=== PATIENT | female | born 1980 | race Caucasian/White ===

== ENCOUNTER 2018-12-09 07:38 | Inpatient (IN) | payer OTHER, MEDICAID ==
[~2018-12-09 07:38] MED LIST: OXYTOCIN 30 UNITS/LR 500 ML BAG IV; PHENYLephrine (100 MCG/ML) 5ML SYG
[2018-12-09] MEDS ORDERED: LACTATED RINGER'S 500 ML IV (07:52)
[2018-12-09] MEDS ORDERED: METHYLERGONOVINE 0.2 MG INJ IM (08:00)
[2018-12-09] MEDS ORDERED: CARBOPROST 250 MCG INJ IM (08:00)
[2018-12-09] MEDS ORDERED: MISOPROSTOL 200 MCG TAB PR ×2 (08:00→11:30)
[2018-12-09] MEDS: LACTATED RINGER'S 1,000 ML IV ×4 (08:24→22:25)
[2018-12-09 08:25] LABS: ADD MAN DIFF? NO
[2018-12-09 08:28] LABS: WHITE BLOOD COUNT 9.1 10^3/ul (4.8-10.8)
[2018-12-09 08:28] LABS: BASOPHILS % 0.2 % (0.0-2.0); EOSINOPHILS # 0.1 10^3/ul (0.0-0.5); EOSINOPHILS % 0.8 % (0.0-7.0); HEMATOCRIT 36.7 % (37.0-47.0); HEMOGLOBIN 12.6 g/dl (12.0-16.0); LYMPHOCYTES # 2.2 10^3/ul (0.8-2.9); LYMPHOCYTES % 23.7 % (15.0-51.0); MEAN CORPUSCULAR HEMOGLOBIN 29.8 pg (29.0-33.0); MEAN CORPUSCULAR HGB CONC 34.3 g/dl (32.0-37.0); MEAN CORPUSCULAR VOLUME 86.8 fl (82.0-101.0); MEAN PLATELET VOLUME 11.3 fl (7.4-10.4); MONOCYTE # 0.5 10^3/ul (0.3-0.9); NEUTROPHIL # 6.4 10^3/ul (1.6-7.5); PLATELET COUNT 248 10^3/UL (140-415); RED BLOOD COUNT 4.23 10^6/ul (4.20-5.40); RED CELL DISTRIBUTION WIDTH 12.4 % (11.5-14.5)
[2018-12-09] MEDS ORDERED: HYDROmorphONE 0.5 MG/0.5 ML SYG IV ×2 (09:00)
[2018-12-09] MEDS ORDERED: ONDANSETRON 4 MG INJ IV ×2 (09:00)
[2018-12-09] MEDS ORDERED: ALBUTEROL 0.083% (NEB) 2.5 MG/3 ML AMP HHN (09:00)
[2018-12-09] MEDS ORDERED: METOCLOPRAMIDE 10 MG INJ IV (09:00)
[2018-12-09] MEDS ORDERED: NALOXONE (0.4 MG/ML) INJ IV (09:00)
[2018-12-09] MEDS ORDERED: FENTAnyl 50 MCG/ML VIAL IV ×2 (09:00)
[2018-12-09] MEDS ORDERED: DIPHENHYDRAMINE 50 MG INJ IV ×2 (09:00)
[2018-12-09] MEDS ORDERED: HYDROmorphONE 1 MG/5 ML IV SYRINGE IV ×3 (09:00)
[2018-12-09] MEDS ORDERED: KETOROLAC 30 MG INJ IV (09:00)
[2018-12-09 09:03] LABS: INR 0.91; PROTIME 12.4 Sec (11.9-14.9)
[2018-12-09 09:04] LABS: PARTIAL THROMBOPLASTIN TIME 28.2 Sec (23.0-35.0)
[2018-12-09] MEDS ORDERED: NA PHOSPHATE/BIPHOS 133 ML ENEMA PR (11:30)
[2018-12-09] MEDS ORDERED: morphine SULFATE/PF (10 MG/10 ML) INJ (11:33)
[2018-12-09] MEDS ORDERED: FENTAnyl 50 MCG/ML VIAL (11:52)
[2018-12-09] MEDS: OXYTOCIN 30 UNITS/LR 500 ML IV ×2 (13:22→17:40)
[2018-12-09] MEDS: KETOROLAC 30 MG INJ IV ×2 (14:00→20:14)
[2018-12-09] MEDS: CEFAZOLIN 2 GM/50 ML (PMX) 50 ML IVPB (17:42)
[2018-12-09 19:15] LABS: RAPID PLASMA REAGIN NONREACTIVE (NR)
[2018-12-09] MEDS: SENNA/DOCUSATE NA (8.6MG/50MG) TAB PO (20:14)
[2018-12-10] MEDS: KETOROLAC 30 MG INJ IV (03:54)
[2018-12-10] MEDS: LACTATED RINGER'S 1,000 ML IV (05:48)
[2018-12-10 06:44] LABS: ADD MAN DIFF? NO
[2018-12-10 06:48] LABS: WHITE BLOOD COUNT 6.8 10^3/ul (4.8-10.8)
[2018-12-10 06:48] LABS: BASOPHILS % 0.1 % (0.0-2.0); EOSINOPHILS # 0.1 10^3/ul (0.0-0.5); EOSINOPHILS % 1.2 % (0.0-7.0); HEMATOCRIT 29.2 % (37.0-47.0); HEMOGLOBIN 9.9 g/dl (12.0-16.0); LYMPHOCYTES # 1.4 10^3/ul (0.8-2.9); LYMPHOCYTES % 20.1 % (15.0-51.0); MEAN CORPUSCULAR HEMOGLOBIN 29.4 pg (29.0-33.0); MEAN CORPUSCULAR HGB CONC 33.9 g/dl (32.0-37.0); MEAN CORPUSCULAR VOLUME 86.6 fl (82.0-101.0); MEAN PLATELET VOLUME 11.4 fl (7.4-10.4); MONOCYTE # 0.3 10^3/ul (0.3-0.9); MONOCYTES % 4.9 % (0.0-11.0); NEUTROPHILS % 73.3 % (39.0-77.0); PLATELET COUNT 191 10^3/UL (140-415); RED BLOOD COUNT 3.37 10^6/ul (4.20-5.40); RED CELL DISTRIBUTION WIDTH 12.4 % (11.5-14.5)
[2018-12-10] MEDS ORDERED: OXYCODONE/ACETAMINOPHEN (5/325) TAB PO (09:00)
[2018-12-10] MEDS: IBUPROFEN 600 MG TAB PO ×4 (09:00→23:41)
[2018-12-10] MEDS: SENNA/DOCUSATE NA (8.6MG/50MG) TAB PO ×2 (11:06→21:20)
[2018-12-10] MEDS: OXYCODONE/ACETAMINOPHEN (5/325) TAB PO ×3 (11:14→23:42)
[2018-12-10] MEDS: LANOLIN HPA 1 PKT TOP (12:26)
[2018-12-11] MEDS: IBUPROFEN 600 MG TAB PO ×3 (05:56→20:37)
[2018-12-11] MEDS: SENNA/DOCUSATE NA (8.6MG/50MG) TAB PO ×2 (09:07→20:36)
[2018-12-12] MEDS: IBUPROFEN 600 MG TAB PO ×5 (02:00→23:42)
[2018-12-12] MEDS ORDERED: DIPHTH/TET/ACEL PERTUSS (ADULT) 0.5 ML VIAL IM* (09:00)
[2018-12-12] MEDS: MEASLES,MUMPS,RUBELLA VACCINE INJ SC* (09:00)
[2018-12-12] MEDS: SENNA/DOCUSATE NA (8.6MG/50MG) TAB PO ×2 (11:52→23:42)
[2018-12-12] MEDS: DIPHTH/TET/ACEL PERTUSS (ADULT) 0.5 ML VIAL IM* (17:22)
[2018-12-13] MEDS: IBUPROFEN 600 MG TAB PO ×2 (05:37→12:12)
[2018-12-13] MEDS: SENNA/DOCUSATE NA (8.6MG/50MG) TAB PO (08:45)
== END 2018-12-13 16:06 | disposition home or self-care (01) | DRG 788 ==
LOC: L-D 07:38 → PP1 15:08
PROVIDERS: Specialist
PROC: 10D00Z1 Extraction of Products of Conception, Low, Open Approach (ICD-10-PCS; principal; 2018-12-09 09:00)
DX: O36.5930 Maternal care for other known or suspected poor fetal growth, third trimester, not applicable or unspecified (principal); O34.212 Maternal care for vertical scar from previous cesarean delivery; O12.05 Gestational edema, complicating the puerperium; G89.18 Other acute postprocedural pain; Z3A.36 36 weeks gestation of pregnancy; Z37.0 Single live birth; Z23 Encounter for immunization
CPT/HCPCS: 85025; 85610; 85730; 86592; 86850; 86900; 86901; 90715; 99464